=== PATIENT | female | born 1945 | race Caucasian/White ===

== ENCOUNTER 2016-11-13 19:20 | Emergency (ER) | payer MEDICARE, MEDICAID ==
[~2016-11-13] VITALS: Ht 157.5 cm; Wt 65.8 kg
--- NOTE | 2016-11-13 20:23 | Diagnostic Imaging Report ---
INDICATION: Status post fall with right-sided pain. TECHNIQUE: Frontal and Lateral views of the right femur. CORRELATION STUDY: None FINDINGS: Examination of the femur demonstrates no evidence for acute bony abnormality or fracture of the femur. No sukumar bony destructive change. Imaging of the hip unremarkable. Joint space narrowing at the knee. Soft tissues are unremarkable. IMPRESSION: 1. Negative for acute bony abnormality of the femur. Dictated by: Dictated on workstation # [id number]
--- NOTE | 2016-11-13 20:26 | Diagnostic Imaging Report ---
INDICATION: Fall with pain. TECHNIQUE: AP and lateral views of the right tibia and fibula. CORRELATION STUDY: None FINDINGS: The tibia and fibula are intact. There is no evidence for acute fracture. Limited visualized portions of the knee and ankle are unremarkable. Soft tissues are unremarkable. IMPRESSION: 1.Negative for acute bony abnormality of the leg. Dictated by: Dictated on workstation # [id number]
--- NOTE | 2016-11-13 20:28 | Diagnostic Imaging Report ---
INDICATION: Fall with pain. TECHNIQUE: AP pelvis, 8:02 p.m. CORRELATION STUDY: None. FINDINGS: The pelvis demonstrates no evidence for acute fracture. The pectineal lines and obturator rings are maintained. Pubic symphysis and SI joints are unremarkable. Mild joint space narrowing of bilateral hips. Degenerative changes in the visualized lower lumbar spine. IMPRESSION: Negative examination of the pelvis. Dictated by: Dictated on workstation # [id number]
--- NOTE | 2016-11-13 20:31 | Diagnostic Imaging Report ---
INDICATION: Fall, pain. TECHNIQUE: Three views of the right foot. CORRELATION STUDY: None. FINDINGS: Questionable subtle lucency at the medial base of the proximal base of the little toe. There is also a subtle lucency through the proximal phalanx of the fourth toe. Nondisplaced fracture is not excluded. There are mild degenerative changes of the interphalangeal joints. Remaining osseous structures are intact. Mild diffuse bony demineralization. Mildly prominent calcaneal spur formation. IMPRESSION: Subtle lucency at the base of the proximal phalanx of both the fourth and little toe. This may be artifactual and a nondisplaced fracture is not excluded. Correlation with site of pain recommended. Dictated by: Dictated on workstation # [id number]
--- NOTE | 2016-11-13 20:33 | Diagnostic Imaging Report ---
INDICATION: Fall with pain. TECHNIQUE: Three views of the right knee. CORRELATION STUDY: None. FINDINGS: Very mild joint space narrowing noted, medially. Minimal osteophyte projects medially. Articular surfaces are smooth. No acute bony abnormality. Bony demineralization is present. Subcutaneous tissue appear unremarkable IMPRESSION: Negative for acute bony abnormality of the knee. Dictated by: Dictated on workstation # [id number]
--- NOTE | 2016-11-13 20:35 | Diagnostic Imaging Report ---
INDICATION: Fall with right-sided pain. TECHNIQUE: Two views of the right hip. CORRELATION STUDY: None. FINDINGS: Osseous structures are intact with the bony trabecular pattern maintained. Very mild joint space narrowing. Minimal osteophyte in the superior aspect of the acetabulum. IMPRESSION: Negative for acute bony abnormality of the right hip. Dictated by: Dictated on workstation # [id number]
--- NOTE | 2016-11-13 20:42 | Diagnostic Imaging Report ---
INDICATION: Status post fall with right-sided pain. Unable to move right side at all. TECHNIQUE: Noncontrast CT imaging of the thoracic and lumbar spine with sagittal and coronal reformatted images. FINDINGS: Thoracic spinal alignment demonstrates very slight accentuated thoracic kyphotic curvature. Minimal anterior wedge midthoracic vertebral bodies are noted. No acute appearing compression deformity is suggested. Rather pronounced multilevel thoracic spondylosis disc space narrowing at essentially all levels of the thoracic spine. Scattered areas of vacuum disc phenomena are present. Slightly more prominent posterior osteophyte formation at T7-T8 and T5-T6 level with minimal encroachment upon the the spinal canal without high degree canal stenosis. Posterior elements appear to be intact. There is rather prominent severity bony demineralization present. Lumbar spine demonstrates grade 1 spondylolisthesis of L4 on L5 with trace anterolisthesis of L5 on S1. Alignment is otherwise anatomic. Lumbar vertebral body heights are maintained but demineralized. There is hypertrophic facet arthropathy at multiple levels. L5-S1 and L4-L5, and to a lesser degree L3-L4, levels demonstrate bilateral foraminal narrowing owing to broad-based disc bulge along with ligamentum and facet hypertrophy. Also component of spinal canal narrowing at L5-S1 and L4-L5, and to a slightly lesser extent L3-L4, levels. There is moderate calcification of the abdominal aorta. IMPRESSION: 1. Negative for acute fracture of the thoracic spine. Diffuse thoracic spondylosis is present. 2. Negative for acute fracture of the lumbar spine. There is significant spinal canal and foraminal narrowing, particularly at L4-L5 and L5-S1, and to a lesser degree at L3-L4, level is present. This may be owing to disc bulge along with ligament and facet hypertrophy. Grade 1 spondylolisthesis of L4 on L5 and L5 on S1. Dictated by: Dictated on workstation # [id number]
[2016-11-13] MEDS ORDERED: RX-CYCLOBENZAPRINE 10 MG (FLEXERIL) TAB PPK#3 PO STA (20:47)
[2016-11-13] MEDS ORDERED: CYCL10TA9 PO (20:51)
--- NOTE | 2016-11-13 20:51 | ED Fall/Injury ---
General Chief Complaint: Trauma-Non Activation Stated Complaint: FALL, R LEG/HIP PAIN Nursing Triage Note: Pt. c/o right hip pain as well as bilateral knee pain. Source: patient History of Present Illness Time seen by provider: 19:35 Initial Comments PT ARRIVES VIA EMS FROM HOME PT STATES SHE TRIPPED AND FELL FORWARD, LANDING ON HER KNEES--OCCURRED AT HOME JUST PRIOR TO ARRIVAL C/O PAIN TO ENTIRE RIGHT LEG--CANNOT LOCALIZE PAIN TO ONE AREA C/O BILATERAL KNEE PAIN--PT HAS CHRONIC BILATERAL KNEE PAIN AND HAS HAD SURGERIES ON BOTH KNEES IN PAST, BUT HAS NOT HAD TO HAVE KNEE REPLACEMENT YET C/O MID AND LOWER BACK PAIN--PT HAS CHRONIC BACK PAIN C/O NUMBNESS TO RIGHT LEG DID NOT HIT HEAD AND NO LOSS OF CONSCIOUSNESS NO NECK PAIN EMS GAVE FENTANYL 100 MCG PRIOR TO ARRIVAL PT TAKES HYDROCODONE ON A REGULAR BASIS Location Injury Occurred: pt. residence PCP: DR. RAMIREZ IN [place]--"JUST MOVED HERE" TO [facility]. Allergies and Home Medications Allergies Coded Allergies: No Known Drug Allergies (Unverified , 11/13/16) Home Medications Cyclobenzaprine HCl 10 Mg Tablet, 10 MG PO Q8H, #15 Prescribed by: ALICIA HO on 11/13/162050 Constitutional: no symptoms reported Eyes: No Symptoms Reported Ears, Nose, Mouth, Throat: no symptoms reported Respiratory: no symptoms reported Cardiovascular: no symptoms reported Gastrointestinal: no symptoms reported Genitourinary: no symptoms reported Musculoskeletal: see HPI Skin: no symptoms reported Psychiatric/Neurological: See HPI Past Zkuooif-Taramh-Lksfvp Hx Patient Social History Alcohol Use: Denies Use Recreational Drug Use: No Smoking Status: Current Everyday Smoker (1 PPD) Type Used: Cigarettes Recent Foreign Travel: No Contact w/Someone Who Travel: No Recent Infectious Disease Expo: No Seasonal Allergies Seasonal Allergies: No Surgeries HX Surgeries: Yes (BILATERAL KNEE SCOPES) Surgeries: Orthopedic Respiratory Hx Respiratory Disorders: Yes Respiratory Disorders: COPD Cardiovascular Hx Cardiac Disorders: Yes Cardiac Disorders: Hypertension Neurological Hx Neurological Disorders: No Genitourinary Hx Genitourinary Disorders: No Gastrointestinal Hx Gastrointestinal Disorders: No Musculoskeletal Hx Musculoskeletal Disorders: Yes (CHRONIC BILATERAL KNEE PAIN ) Musculoskeletal Disorders: Arthritis, Chronic Back Pain Endocrine Hx Endocrine Disorders: No HEENT HX ENT Disorders: No Cancer Hx Cancer: No Psychosocial Hx Psychiatric Problems: No Integumentary HX Skin/Integumentary Disorder: No Blood Transfusions Hx Blood Disorders: No Physical Exam Vital Signs Vital Sign - Last 12Hours 11/13/16 19:39 Temp 98.0 Pulse 86 Resp 14 B/P (MAP) 130/81 Pulse Ox 96 O2 Delivery Room Air Capillary Refill : Less Than 3 Seconds General Appearance: WD/WN, no apparent distress HEENT: PERRL/EOMI Neck: non-tender, full range of motion, supple, normal inspection Cardiovascular: regular rate, rhythm, no murmur Respiratory: chest non-tender, normal breath sounds, no respiratory distress, no accessory muscle use Peripheral Pulses: 1+ Dorsalis Pedis (R), 1+ Left Dors-Pedis (L), 1+ Radial Pulses (R), 1+ Radial Pulses (L) Gastrointestinal: normal bowel sounds, non tender, soft Back: other (DIFFUSE MID AND LOWER BACK TENDERNESS) Extremities: normal range of motion, no pedal edema, no calf tenderness, normal capillary refill, other (DIFFUSE TENDERNESS TO RIGHT LEG. MILD SWELLING TO RIGHT KNEE WITH TENDERNESS. + TENDERNESS TO LEFT KNEE. NO BRUISING OR DISCOLORATION. MOTOR/SENSORY/VASCULAR INTACT. NO TOE TENDERNESS, SWELLING OR DEFORMITY. 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, alert, normal mood/affect, oriented x 3, other (SLIGHTLY DECREASED SENSATION TO RIGHT FOOT) Skin: normal color, warm/dry, No ecchymosis Progress/Results/Core Measures Results/Orders My Orders Orders - ALICIA HO DO Pelvis (11/13/16 19:37) Hip, Right, 2 Views (11/13/16 19:37) Knee, 3 Views, Bilateral (11/13/16 19:37) Ct Thoracic/Lumbar Spine Wo (11/13/16 19:42) Femur, Right, 2 Views (11/13/16 19:42) Tibia/Fibula, Right, 2 Views (11/13/16 19:42) Foot, Right, 3 View (11/13/16 19:42) Rx-Cyclobenzaprine Tablet (Rx-Flexeril T (11/13/16 20:47) Ketorolac Injection (Toradol Injection) (11/13/16 21:00) Orphenadrine Injection (Norflex Injectio (11/13/16 21:00) Medications Given in ED Current Medications Medications Dose Ordered Sig/Elysia Route Start Time Stop Time Status Last Admin Dose Admin Ketorolac Tromethamine 30 mg ONCE ONCE IVP 11/13/16 21:00 11/13/16 21:01 DC 11/13/16 21:24 30 MG Orphenadrine Citrate 60 mg ONCE ONCE IVP 11/13/16 21:00 11/13/16 21:01 DC 11/13/16 21:23 60 MG Vital Signs/I&O Vital Sign - Last 12Hours 11/13/16 11/13/16 19:39 21:40 Temp 98.0 Pulse 86 62 Resp 14 14 B/P (MAP) 130/81 Pulse Ox 96 98 O2 Delivery Room Air Blood Pressure Mean: 97 Progress Note : Progress Note UNEVENTFUL ER STAY Diagnostic Imaging Comments XRAYS OF PELVIS, RIGHT HIP, RIGHT FEMUR, RIGHT KNEE, RIGHT TIB-FIB AND LEFT KNEE --ALL WITH NO ACUTE PROCESS XRAYS OF RIGHT FOOT--QUESTIONABLE FX TO 4TH AND 5TH TOES, VS ARTIFACT PER RADIOLOGIST REPORTS @ 2036 CT THORACIC AND LUMBAR SPINE--NO ACUTE PROCESS, DEGENERATIVE CHANGES, OSTEOPOROSIS--PER RADIOLOGIST REPORT @ 2042 Reviewed: Reviewed by Me Departure Impression Impression: Primary Impression: Status post fall Additional Impressions: RIGHT LEG STRAIN BILATERAL KNEE CONTUSIONS Back strain Exacerbation of chronic back pain Disposition: HOME, SELF-CARE Condition: Stable Departure-Patient Inst. Patient Instructions: Contusion (DC), Low Back Pain (DC), Preventing Falls in the Older Adult, Upper Back Pain (DC) Add. Discharge Instructions: ALTERNATE ICE AND HEAT TO SORE AREAS AT 20 MINUTE INTERVALS ACTIVITIES TOLERATED TAKE YOUR HOME HYDROCODONE NEEDED FOR PAIN FOLLOW UP WITH YOUR DR IN 5-7 DAYS IF NO BETTER All discharge instructions reviewed with patient and/or family. Voiced understanding. Scripts Cyclobenzaprine HCl (Cyclobenzaprine HCl) 10 Mg Tablet 10 MG PO Q8H, #15 TAB Prov: ALICIA HO DO 11/13/16 ALICIA HO DO Nov 13, 2016 20:51
[2016-11-13] MEDS ORDERED: ORPHENADRINE 60 MG/2 ML (NORFLEX) AMP IVP ONE (21:00)
[2016-11-13] MEDS ORDERED: KETOROLAC 30 MG/ML VIAL IVP ONE (21:00)
[2016-11-13 21:40] VITALS: BP 153/85
== END 2016-11-13 22:00 | disposition home or self-care (01) ==
LOC: EDUNIT# 19:20 → ER 19:32
DX: S86.911A Strain of unspecified muscle(s) and tendon(s) at lower leg level, right leg, initial encounter (principal); S80.01XA Contusion of right knee, initial encounter; M43.16 Spondylolisthesis, lumbar region; M54.5 Low back pain; G89.29 Other chronic pain; W01.0XXA Fall on same level from slipping, tripping and stumbling without subsequent striking against object, initial encounter; Y92.009 Unspecified place in unspecified non-institutional (private) residence as the place of occurrence of the external cause; Y99.8 Other external cause status
CPT/HCPCS: 72128; 72131; 72170; 73502; 73552; 73590; 73630; 96374; 96375; 99283

== ENCOUNTER 2016-12-28 11:15 | Outpatient (RCR) | payer MEDICARE, MEDICAID ==
[~2016-12-28 11:15] MED LIST: CYCL10TA9 PO
== END 2017-01-10 11:13 | disposition home or self-care (01) ==
PROVIDERS: ATTEND Physician Assistant Medical
DX: M25.561 Pain in right knee (principal); M25.562 Pain in left knee; M47.896 Other spondylosis, lumbar region

== ENCOUNTER → 2017-10-25 | Outpatient (CLI) | payer MEDICARE, MEDICAID ==
--- NOTE | 2017-10-25 10:58 | Diagnostic Imaging Report ---
PROCEDURE: MR imaging cervical spine without contrast. TECHNIQUE: Multiplanar, multisequence MR imaging of the cervical spine was performed without contrast. INDICATION: Neck pain radiating into the right shoulder and arm. No prior studies are available for comparison. FINDINGS: Curvature and alignment of the cervical spine is normal. Vertebral body marrow signal is normal. No geographic marrow lesion is seen. There is generalized degenerative disc disease and disc desiccation. Cervical cord does show normal signal intensity and normal morphology. There is generalized facet disease. C2-C3: No central canal or neural foraminal stenosis is identified. C3-C4: Unremarkable. C4-C5: Uncovertebral joint degenerative changes seen but no significant central canal or neural foraminal stenosis is identified. C5-C6: Prominent uncovertebral joint degenerative change does produce moderate bilateral neural foraminal stenosis. Central canal is patent. C6-C7: There is broad-based disc/osteophyte complex flattening the ventral thecal sac. There is uncovertebral joint degenerative change resulting in moderate bilateral neural foraminal narrowing. C7-T1: Unremarkable. IMPRESSION: Cervical spondylosis with neural foraminal narrowing at the C5-C6 and C6-C7 levels. No central canal stenosis is identified. Dictated by: Dictated on workstation # [id number]
--- NOTE | 2017-10-25 11:38 | Diagnostic Imaging Report ---
PROCEDURE: MRI right joint upper extremity without contrast. TECHNIQUE: Multiplanar, multisequence non contrast-enhanced MRI of the right upper extremity was accomplished. INDICATION: Right shoulder pain for one week. COMPARISON: None. FINDINGS: Multiple sequences demonstrate motion artifact. The patient was unable to tolerate additional imaging. No acute fracture or dislocation is seen in the right shoulder. There is abnormal signal of the bone marrow, likely due to red marrow reconversion. No significant joint effusion is seen. Alignment appears normal. There is a full-thickness tear of the anterior supraspinatus tendon, measuring approximately 1.5 cm AP, with approximately 1 cm of retraction. There is tendinosis in the remainder of the supraspinatus tendon. The infraspinatus tendon demonstrates minimal articular surface fraying, with no high-grade partial or full-thickness tear. The subscapularis tendon demonstrates tendinosis with no high-grade partial thickness or full-thickness tear seen. The teres minor tendon appears intact. There is a longitudinal split tear of the proximal long head of the biceps tendon. The glenoid labrum is suboptimally evaluated in the absence of contrast. No para-labral cysts are seen. The spinoglenoid and suprascapular notches are clear. The acromion has a curved undersurface without significant downsloping or hooking. There is minimal subacromial spurring. The coracoclavicular ligament is intact. The coracoacromial ligament is not well seen. The soft tissues about the right shoulder are otherwise unremarkable. No focal atrophy is seen. IMPRESSION: 1. Small, mildly retracted full-thickness tear of the anterior right supraspinatus tendon. No muscular atrophy is seen. 2. Minimal fraying of the infraspinatus tendon and tendinosis of the subscapularis tendon with no additional high-grade tear of the right rotator cuff. 3. Longitudinal split tear of the proximal long head of the biceps tendon. Dictated by: Dictated on workstation # [id number]
== END ==
LOC: RAD 10:01
PROVIDERS: ATTEND Nurse Practitioner Family
DX: M48.02 Spinal stenosis, cervical region (principal); M47.22 Other spondylosis with radiculopathy, cervical region; S46.811A Strain of other muscles, fascia and tendons at shoulder and upper arm level, right arm, initial encounter; S46.111A Strain of muscle, fascia and tendon of long head of biceps, right arm, initial encounter
CPT/HCPCS: 72141; 73221

== ENCOUNTER 2018-02-02 12:59 | Outpatient (RCR) | payer MEDICARE, MEDICAID | END 2018-02-02 14:39 | disposition home or self-care (01) | PROVIDERS: ATTEND Nurse Practitioner Family | DX: Z98.890 Other specified postprocedural states (principal) ==

== ENCOUNTER → 2020-03-18 | Outpatient (CLI) | payer MEDICARE, MEDICAID ==
[~2020-03-18] MED LIST changes: +ACET325T38 PO; +ALB0.5V INH; +ALPR0.5T7 PO; +ASPI-983 PO; +BUDE10.2 PO; +CARV12.53 PO; +DIPH50CA PO; +DOCU-238 PO; +FURO-124 PO; +FURO40TA4 PO; +HYDR-34 PO; +ISOS120T9 PO; +LISI10TA2 PO; +LORA10TA7 PO; +MAGN400T7 PO; +MELO15TA39; +MELO15TA39 PO; +METO5TAB6 PO; +MOM10U PO; +MONT10TA26 PO; +NF-MAG64T PO; +OMEP40CA27; +OMEP40CA27 PO; +POTA-51 PO; +POTA500T PO; +SPIR25TA5 PO; +TIOT18CA2 IH; +[UNRECOGNIZED DRUG - CODE]
--- NOTE | 2020-03-18 18:10 | Diagnostic Imaging Report ---
INDICATION: Chronic sinusitis. EXAMINATION: CT sinuses obtained without contrast with axial slices and sagittal and coronal reconstructions. TECHNIQUE: Multiple contiguous axial images were obtained through the facial bones without the use of intravenous contrast. Auto Exposure Controls were utilized during the CT exam to meet ALARA standards for radiation dose reduction. COMPARISON: There is no prior study for comparison. FINDINGS: The frontal sinuses appear well aerated. The ethmoid air cells appear clear. The sphenoid sinuses are clear. The maxillary sinuses appear clear on both sides. The visualized portions of the mastoid air cells are also clear. The ostiomeatal complexes are normal. There is deviation of the nasal septum towards the right side. Orbital contents appear unremarkable. IMPRESSION: There is deviation of the nasal septum towards the right side. The paranasal sinuses appear clear. Dictated by: Dictated on workstation # [id number]
== END ==
LOC: RAD 12:05
PROVIDERS: ATTEND Plastic Surgery Plastic Surgery Within the Head and Neck
DX: J32.9 Chronic sinusitis, unspecified (principal); J34.2 Deviated nasal septum
CPT/HCPCS: 70486

== ENCOUNTER → 2021-06-28 | Outpatient (CLI) | payer MEDICARE, MEDICAID ==
[~2021-06-28] MED LIST changes: +ASPI-1238 PO; -ASPI-983 PO; +CYCL10TA25 PO; -CYCL10TA9 PO; -DIPH50CA PO; +DIPH50CA33 PO; -DOCU-238 PO; +DOCU-26 PO; -LISI10TA2 PO; +LISI10TA25 PO; +MONT-40 PO; -MONT10TA26 PO; -OMEP40CA27; -OMEP40CA27 PO; +OMEP40CA6; +OMEP40CA6 PO; +RT-ALBUTEROL SULF 2.5 MG/3 ML PRE-MIX VIAL INH ONE
== END ==
LOC: RT 10:45
PROVIDERS: ATTEND Nurse Practitioner Family
DX: J44.9 Chronic obstructive pulmonary disease, unspecified (principal)
CPT/HCPCS: 94060; 94726; 94729

== ENCOUNTER → 2021-08-05 | Outpatient (CLI) | payer MEDICARE, MEDICAID ==
[~2021-08-05] MED LIST changes: -RT-ALBUTEROL SULF 2.5 MG/3 ML PRE-MIX VIAL INH ONE
--- NOTE | 2021-08-05 16:55 | Diagnostic Imaging Report ---
CT Lung Screening INDICATION: 56 pack year smoking history TECHNIQUE: Noncontrast, low-dose CT imaging performed according to the lung cancer screening protocol. Auto Exposure Controls were utilize during the CT exam to meet ALARA standards for radiation dose reduction. COMPARISON:Baseline FINDINGS:No lung mass or suspicious pulmonary nodule. No evidence for thoracic adenopathy. The atherosclerotic aorta is nonaneurysmal. There is no pleural or pericardial effusion. There are coronary artery atherosclerotic vascular calcifications. No evidence of edema or pneumonia. The upper abdomen nonacute. IMPRESSION: No suspicious lung mass. Continued low-dose CT screening follow-up in one year's time LUNG-RADS CATEGORY:Category 1 MODIFIER:None OTHER SIGNIFICANT FINDINGS: Nonaneurysmal aortic and coronary artery atherosclerosis Dictated by: Dictated on workstation # [id number]
== END ==
LOC: RAD 12:45
PROVIDERS: ATTEND Nurse Practitioner Family
DX: Z12.2 Encounter for screening for malignant neoplasm of respiratory organs (principal); J44.9 Chronic obstructive pulmonary disease, unspecified; F17.210 Nicotine dependence, cigarettes, uncomplicated
CPT/HCPCS: 71271

== ENCOUNTER 2022-04-13 16:00 | Emergency (ER) | payer MEDICARE, MEDICAID ==
[~2022-04-13] VITALS: Ht 152 cm; Wt 67.8 kg
[2022-04-13 16:58] LABS: POTASSIUM 2.8 MMOL/L (3.6-5.0)
[2022-04-13 17:00] LABS: CALCIUM 9.6 MG/DL (8.5-10.1)
[2022-04-13 17:04] LABS: CREATININE SERUM 0.72 MG/DL (0.60-1.30)
[2022-04-13 17:06] LABS: MAGNESIUM 1.2 MG/DL (1.6-2.4)
[2022-04-13] MEDS ORDERED: POTASSIUM CL 10MEQ/50ML IVPB 50 ML IV ONE (17:15)
[2022-04-13] MEDS ORDERED: NS IV 1000 ML 1,000 ML IV ONE (17:15)
[2022-04-13] MEDS ORDERED: MAGNESIUM 1 GM/100 ML IVPB 100 ML IV ONE (18:15)
[2022-04-13] MEDS ORDERED: MAGNESIUM OXIDE (MAG-OX)400 MG TAB PO ONE (18:30)
[2022-04-13] MEDS ORDERED: KCL 10 MEQ TAB (MICRO K) PO ONE (18:30)
--- NOTE | 2022-04-13 18:39 | ED General ---
General Chief Complaint: General Problems/Pain Stated Complaint: LOW POTASSIUM Nursing Triage Note: SENT OUT BY HER DR AT [facility] WITH A LOW K+. STATES SHE IS NOT HAVING SX. Source of Information: Patient Exam Limitations: No Limitations History of Present Illness Date Seen by Provider: Apr 13, 2022 Time Seen by Provider: 16:46 Initial Comments This 76-year-old woman presents to the emergency room at the direction of Dr. Olguin, her disulfurizer tender. She reportedly had outpatient labs obtained today and was called back later by Dr. Olguin's office stating her potassium was too low and she should present to the emergency room for further evaluation. She has had some cramping but otherwise is feeling okay. She is on diuretic therapy for "kidneys not working well". She reports being on potassium supplementation but does not know the exact dose. She reports for doses a day. She also reports taking magnesium oxide once daily. She is presently taking metolazone for her diuretic therapy. She provides a bit of a confusing history regarding her medications. Allergies and Home Medications Allergies Coded Allergies: No Known Drug Allergies (Unverified , 11/13/16) Patient Home Medication List Home Medication List Reviewed: Yes Acetaminophen (Tylenol) 325 Mg Tablet, 650 MG PO Q8H PRN for PAIN-MILD (1-4), (Reported) Entered as Reported by: MARLENE KESSLER on 09/09/19 0807 Albuterol Sulfate (Albuterol Sulfate) 2.5 Mg/0.5 Ml Vial.neb, 2.5 MG INH Q6H PRN for SHORTNESS OF BREATH, (Reported) Entered as Reported by: MARLENE KESSLER on 09/09/19 0845 Alprazolam (Alprazolam) 0.5 Mg Tablet, 0.5 MG PO DAILY PRN for ANXIETY, (Reported) Entered as Reported by: SINCERE GIPSON on 09/06/19 1732 Aspirin (Aspirin EC) 81 Mg Tablet.dr, 81 MG PO DAILY, (Reported) Entered as Reported by: SHEELA CHILDRESS on 09/07/19 1019 Budesonide/Formoterol Fumarate (Symbicort 160-4.5 Mcg Inhaler) 10.2 Gm Hfa.aer.ad, 2 PUFF PO BID, (Reported) Entered as Reported by: MARLENE KESSLER on 09/09/19 0805 Carvedilol (Carvedilol) 12.5 Mg Tablet, 12.5 MG PO DAILY, (Reported) Entered as Reported by: SINCERE GIPSON on 09/06/19 173 Diphenhydramine HCl (Diphenhydramine HCl) 50 Mg Capsule, 50 MG PO HS PRN for SLEEP, (Reported) Entered as Reported by: MARLENE KESSLER on 09/09/19 0807 Docusate Sodium (Stool Softener) 100 Mg Capsule, 100 MG PO DAILY PRN for CONSTIPATION-1ST LINE, (Reported) Entered as Reported by: MARLENE KESSLER on 09/09/19 08 Furosemide (Lasix) 40 Mg Tablet, 40 MG PO Q48H Prescribed by: MERVIN RANDOLPH on 09/10/19 1100 Hydrocodone Bit/Acetaminophen (HYDROcodone/APAP 7.5/325 TAB) 1 Each Tablet, 1 TAB PO Q6H PRN for PAIN-MODERATE (5-7), (Reported) Entered as Reported by: SINCERE GIPSON on 09/06/19 173 Isosorbide Mononitrate (Isosorbide Mononitrate ER) 120 Mg Tab.er.24h, 120 MG PO DAILY, (Reported) Entered as Reported by: SINCERE GIPSON on 09/06/19 173 Lisinopril (Lisinopril) 10 Mg Tablet, 10 MG PO DAILY Prescribed by: MERVIN RANDOLPH on 09/10/191099 Magnesium Hydroxide (Milk of Magnesia) 2,400 Mg/10 Ml Oral.susp, 30 ML PO Q8H PRN for CONSTIPATION-7TH LINE, (Reported) Entered as Reported by: MARLENE KESSLER on 09/09/19 08 Magnesium Oxide (Magnesium Oxide) 400 Mg Tablet, 400 MG PO BID Prescribed by: MERVIN RANDOLPH on 09/10/19 1100 Meloxicam (Meloxicam) 15 Mg Tablet, 15 MG PO DAILY, (Reported) Entered as Reported by: MARLENE KESSLER on 09/09/19 08 Montelukast Sodium (Montelukast Sodium) 10 Mg Tablet, 10 MG PO DAILY, (Reported) Entered as Reported by: SINCERE GIPSON on 09/06/19 173 Omeprazole (Omeprazole) 40 Mg Capsule.dr, 40 MG PO DAILY, (Reported) Entered as Reported by: MARLENE KESSLER on 09/09/19 0805 Potassium Chloride (Potassium Chloride) 20 Meq Tablet.er, 20 MEQ PO TIDWM Prescribed by: MERVNI RANDOLPH on 09/10/191099 Potassium Phosphate,Monobasic (K-Phos Original) 500 Mg Tablet.david, 500 MG PO BID Prescribed by: MERVIN RANDOLPH on 09/10/191099 Spironolactone (Spironolactone) 25 Mg Tablet, 25 MG PO DAILY Prescribed by: MERVIN RANDOLPH on 09/10/191099 Tiotropium [place] (Spiriva) 1 Inh Aerp, 1 INH IH DAILY PRN for SHORTNESS OF BREATH, (Reported) Entered as Reported by: MARLENE KESSLER on 09/09/19 0845 Review of Systems Review of Systems Constitutional: no symptoms reported EENTM: no symptoms reported Respiratory: no symptoms reported Cardiovascular: no symptoms reported Gastrointestinal: no symptoms reported Genitourinary: no symptoms reported : No Musculoskeletal: see HPI Skin: no symptoms reported Psychiatric/Neurological: No Symptoms Reported Hematologic/Lymphatic: No Symptoms Reported Immunological/Allergic: no symptoms reported Past Jyldjon-Tfdaiv-Pllyvz Hx Patient Social History Tobacco Use?: Yes Tobacco type used: Cigarettes Smoking Status: Current Everyday Smoker Substance use?: No Alcohol Use?: No Immunizations Up To Date COVID19 Vaccine Bi Manager: MARIE Seasonal Allergies Seasonal Allergies: No Past Medical History Surgeries: Yes (BILATERAL KNEE SCOPES) Appendectomy, Hysterectomy, Orthopedic Respiratory: Yes COPD Cardiac: Yes Coronary Artery Disease, Hypertension Neurological: No Genitourinary: Yes Renal Failure (Chronic kidney disease) Gastrointestinal: No Musculoskeletal: Yes (CHRONIC BILATERAL KNEE PAIN ) Arthritis, Chronic Back Pain Endocrine: Yes Hypothyroidsim HEENT: No Cancer: No Psychosocial: No Integumentary: No Blood Disorders: No Physical Exam Vital Signs Vital Signs - First Documented 04/13/22 16:08 Temp 36.8 Pulse 74 Resp 16 B/P (MAP) 134/82 (99) Pulse Ox 96 O2 Delivery Room Air Capillary Refill : Less Than 3 Seconds Height, Weight, BMI Height: 5'2.00" Weight: 145lbs. oz. [id number]; 29.00 BMI Method:Stated General Appearance: No Apparent Distress, WD/WN HEENT: PERRL/EOMI, Normal ENT Inspection Neck: Normal Inspection Respiratory: Lungs Clear, Normal Breath Sounds, No Accessory Muscle Use Cardiovascular: Regular Rate, Rhythm, No Edema, No Murmur Extremity: Normal Inspection, No Pedal Edema Neurologic/Psychiatric: Alert, Oriented x3, No Motor/Sensory Deficits, Normal Mood/Affect, Other (Slightly confusing historian) Skin: Normal Color, Warm/Dry Progress/Results/Core Measures Suspected Sepsis SIRS Temperature: Pulse: 74 Respiratory Rate: 16 Blood Pressure 134 /82 Mean: 99 Laboratory Tests 04/13/22 16:35: Creatinine 0.72 Results/Orders Lab Results Laboratory Tests Test 04/13/22 16:35 Range/Units Sodium Level 135 135-145 MMOL/L Potassium Level 2.8 L 3.6-5.0 MMOL/L Chloride Level 92 L 98-107 MMOL/L Carbon Dioxide Level 28 21-32 MMOL/L Anion Gap 15 H 5-14 MMOL/L Blood Urea Nitrogen 9 7-18 MG/DL Creatinine 0.72 0.60-1.30 MG/DL Estimat Glomerular Filtration Rate 87 BUN/Creatinine Ratio 13 Glucose Level 94 70-105 MG/DL Calcium Level 9.6 8.5-10.1 MG/DL Magnesium Level 1.2 L 1.6-2.4 MG/DL My Orders Orders - MG AKERS MD Basic Metabolic Panel (04/13/22 16:46) Magnesium (04/13/22 16:46) Ed Iv/Invasive Line Start (04/13/22 16:46) Potassium Cl 10meq/50ml Ivpb (Kcl 10 Meq (04/13/22 17:15) Ns Iv 1000 Ml (Sodium Chloride 0.9%) (04/13/22 17:15) Magnesium 1 Gm/100 Ml Ivpb (Magnesium Campos (04/13/22 18:15) Potassium Chloride (Tablet) (Klor Con Ta (04/13/22 18:30) Magnesium Oxide Tablet (Mag Ox Tablet) (04/13/22 18:30) Medications Given in ED Current Medications Medications Dose Ordered Sig/Elysia Route Start Time Stop Time Status Last Admin Dose Admin Magnesium Oxide 400 mg ONCE ONCE PO 04/13/22 18:30 04/13/22 18:31 DC 04/13/22 19:00 400 MG Magnesium Sulfate/ Dextrose 100 ml @ 100 mls/hr ONCE ONCE IV 04/13/22 18:15 04/13/22 19:14 DC 04/13/22 19:00 100 MLS/HR Potassium Chloride 40 meq ONCE ONCE PO 04/13/22 18:30 04/13/22 18:31 DC 04/13/22 19:00 40 MEQ Potassium Chloride 50 ml @ 50 mls/hr ONCE ONCE IV 04/13/22 17:15 04/13/22 18:14 DC 04/13/22 17:23 50 MLS/HR Sodium Chloride 1,000 ml @ 150 mls/hr Q6H40M ONCE IV 04/13/22 17:15 04/13/22 19:43 DC 04/13/22 17:23 150 MLS/HR Vital Signs/I&O 04/13/22 04/13/22 16:08 19:42 Temp 36.8 36.8 Pulse 74 70 Resp 16 16 B/P (MAP) 134/82 (99) 144/86 Pulse Ox 96 96 O2 Delivery Room Air Room Air Capillary Refill : Less Than 3 Seconds Blood Pressure Mean: 99 Progress Note : Progress Note Potassium and magnesium were found to be low. An IV dose of both were administered in the ER followed by oral dosing. I contacted Dr. Last to ensure that follow-up labs would be obtained on Monday. I have also encouraged patient to bring in all of her medications at a follow-up appointment so they can be reviewed since it is unclear to from the filling record what she is actually taking. She reports having a large quantity of potassium and magnesium left over from after hospital admission in 2019. Departure Impression Primary Impression: Hypomagnesemia Additional Impression: Hypokalemia Disposition: 01 HOME, SELF-CARE Condition: Improved Departure-Patient Inst. Decision time for Depature: 18:34 Referrals: [facility] (PCP/Family) Primary Care Physician Patient Instructions: Low Magnesium Level, Hypokalemia Add. Discharge Instructions: Please present to the [facility] on [address] in [place] on MondayApril [address] Last has placed an order for labs that day. In the meantime, continue your potassium dosing and increase your magnesium oxide to 400 mg twice daily. Continue all of your other medications as previously prescribed. Schedule an appointment at the [facility] clinic as soon as possible. If you would like to stay with Roberto Carlos Matute, he is now practicing at the [facility]. You could potentially schedule an appointment with him there. At your follow-up appointment, please bring all of your medications, both prescribed and [id number], in their original bottles. Your doctor needs to review these medications to ensure we are prescribing the appropriate electrolyte replacement options. Return to the emergency room if you are having worsening symptoms despite following these instructions. All discharge instructions reviewed with patient and/or family. Voiced understanding. Copy Copies To 1: AUGUSTO LAST MD, JOSHUA T MD Apr 13, 2022 18:39
[2022-04-13 19:42] VITALS: BP 144/86
== END 2022-04-13 19:42 | disposition home or self-care (01) ==
LOC: EDUNIT# 16:00 → ER 16:01
DX: E83.42 Hypomagnesemia (principal); E87.6 Hypokalemia; F17.210 Nicotine dependence, cigarettes, uncomplicated
CPT/HCPCS: 36415; 80048; 83735